=== PATIENT | male | born 1965 | race African-American/Black ===

== ENCOUNTER 2017-08-17 18:13 | Emergency (ER) | payer BC ==
[~2017-08-17] VITALS: Ht 190.5 cm; Wt 90.0 kg
[~2017-08-17 18:13] MED LIST: CYCL-36 PO; HYDR-3533 PO; NAPR-576 PO
[2017-08-17 18:15] VITALS: BP 152/70; PULSE 98; RESP 16; TEMP 98.3; O2SAT 99
--- NOTE | 2017-08-17 20:09 | PD ---
HPI Chief Complaint: Back/ Neck Pain or Injury Time Seen by Provider: 19:59 Travel History International Travel<30 days: No Contact w/Intl Traveler<30days: No Traveled to known affect area: No History of Present Illness HPI 52-year-old black male presents to emergency department by POV for evaluation of a fall with left-sided back pain. The patient states that he was attempting to break a board by jumping on it when his feet slid out from under him landing on his left lower back/flank against the edge of the pool curved. He did not strike his head. He denies syncope. No neck or upper back pain. No chest pain or shortness of breath. No nausea vomiting. No abdominal pain. No focal numbness, tingling or weakness. He does state the pain is severe. Worse with movement. No alleviating factors. He did state that he had the wind knocked out of him but he is not having difficulty breathing now. PFSH Past Medical History Medical History: Denies Significant Hx Tetanus Vaccination: < 5 Years Past Surgical History Surgical History: No Previous Surgery Social History Alcohol Use: No Tobacco Use: Yes Substance Use: No Allergies-Medications (Allergen,Severity, Reaction): Coded Allergies: No Known Allergies (Verified Adverse Reaction, Unknown, 08/17/17) Reported Meds & Prescriptions Reported Meds & Active Scripts Active Flexeril (Cyclobenzaprine HCl) 10 Mg Tab 10 Mg PO TID Diclofenac Sodium DR (Diclofenac Sodium) 75 Mg Tabdr 75 Mg PO BID Hydrocodone-Acetaminophen 5-325 mg Tab 1 Tab PO Q4H PRN Lortab 5 mg/325 mg (Hydrocodone/Acetaminophen 5 mg/325 mg) 1 Tab 1 Tab PO Q6H PRN Naproxen 500 Mg Tab 500 Mg PO Q12HR PRN Flexeril (Cyclobenzaprine HCl) 10 Mg Tab 10 Mg PO Q8HR PRN Review of Systems General / Constitutional: No: Fever Eyes: No: Visual changes HENT: No: Headaches Cardiovascular: No: Chest Pain or Discomfort Respiratory: No: Shortness of Breath Gastrointestinal: No: Abdominal Pain Genitourinary: No: Dysuria, Hematuria Musculoskeletal: Positive: Myalgias, Arthralgias, Limited ROM, Cramping, Pain Skin: No Rash Neurologic: No: Weakness Psychiatric: No: Depression Endocrine: No: Polydipsia Hematologic/Lymphatic: No: Easy Bruising Physical Exam Narrative GENERAL: Well-developed, well-nourished in mild-moderate distress secondary to pain. Nontoxic appearing. HEAD: Normocephalic, atraumatic. EYES: Pupils equal round and reactive. Extraocular motions intact. No scleral icterus. No injection or drainage. ENT: Nose clear. Throat without erythema, tonsillar hypertrophy or exudate. Uvula midline. Airway patent. NECK: Trachea midline. Supple, nontender, moves head freely. No central bony tenderness or spasm. CARDIOVASCULAR: Regular rate and rhythm without murmurs, gallops, or rubs. RESPIRATORY: Clear to auscultation. Breath sounds equal bilaterally. No wheezes , rales, or rhonchi. GASTROINTESTINAL: Abdomen soft, non-tender, nondistended. No hepato-splenomegaly , or palpable masses. No guarding. EXTREMITIES: No clubbing, cyanosis, or edema. No joint tenderness. BACK: No central bony tenderness to palpation of the dorsum and lumbar spine. Positive left lower lumbar and left flank tenderness Without deformity. Mild spasm. Significant decreased range of motion. No saddle anesthesia. NEUROLOGICAL: Awake, alert and oriented x 3 .Cranial nerves grossly intact. Motor and sensory grossly within normal limits. Normal speech. Data Data Last Documented VS Vital Signs Date Time Temp Pulse Resp B/P (MAP) Pulse Ox O2 Delivery O2 Flow Rate FiO2 08/17/17 20:31 18 08/17/17 18:15 98.3 98 152/70 (97) 99 Orders Orders Morphine Inj (Morphine Inj) (08/17/17 20:15) Ondansetron Odt (Zofran Odt) (08/17/17 20:15) Lorazepam Inj (Ativan Inj) (08/17/17 20:15) Urinalysis - C+S If Indicated (08/17/17 20:03) Spine, Lumbar - Ltd (Ap & Lat) (08/17/17 ) Labs Laboratory Tests Test 08/17/17 21:15 Urine Color YELLOW Urine Turbidity CLEAR Urine pH 5.5 Urine Specific [place] 1.014 Urine Protein NEG mg/dL Urine Glucose (UA) NEG mg/dL Urine Ketones NEG mg/dL Urine Occult Blood TRACE Urine Nitrite NEG Urine Bilirubin NEG Urine Urobilinogen LESS THAN 2.0 MG/DL Urine Leukocyte Esterase NEG Urine RBC 0-3 /hpf Urine Bacteria RARE /hpf Urine Mucus MANY /lpf Microscopic Urinalysis Comment CULT NOT INDICATED MDM Medical Decision Making Medical Screen Exam Complete: Yes Emergency Medical Condition: Yes Medical Record Reviewed: Yes Interpretation(s) Lumbar spine: Negative for acute bony injury UA: Negative Differential Diagnosis MDM: High Differential diagnoses: Fracture, sprain, strain, dislocation, contusion, neurovascular injury Narrative Course Patient is given morphine 8 mg IM, Ativan 2 mg IM, and x-ray of the lumbar spine. UA ordered. X-ray and urinary negative for acute trauma. Patient has improvement of symptoms. This is back contusion, fall Diagnosis Primary Impression: Back contusion Qualified Codes: S20.222A - Contusion of left back wall of thorax, initial encounter Additional Impression: Fall Qualified Codes: W19.XXXA - Unspecified fall, initial encounter Patient Instructions: Narcotic given in the ED, General Instructions Departure Forms: Tests/Procedures, Work Release Special Instructions: No work 2 days. Additional Instructions: Rest. Ice for the next 3 days followed by heat . Lortab, Flexeril and Voltaren. Follow-up with a primary care doctor in one week. Return to the ER for emergencies. Med/Other Pt SpecificInfo: Prescription(s) given Scripts Cyclobenzaprine (Flexeril) 10 Mg Tab 10 MG PO TID for Muscle Spasm, #30 TAB 0 Refills Prov: Alexandria Johnson DO 08/17/[address] (Diclofenac Sodium DR) 75 Mg Tabdr 75 MG PO BID, #20 TAB 0 Refills Prov: Alexandria Johnson DO 08/17/17 Hydrocodone-Acetaminophen (Hydrocodone-Acetaminophen) 5-325 mg Tab 1 TAB PO Q4H Y for PAIN, #12 TAB 0 Refills Prov: Alexandria Johnson DO 08/17/17 Disposition: 01 DISCHARGE HOME Condition: Stable Malik Maldonado Aug 17, 2017 20:09
[2017-08-17] MEDS ORDERED: MORPHINE SULFATE 8 MG/ML INJ IM ONE (20:15)
[2017-08-17] MEDS ORDERED: LORazepam 2 MG/ML VIAL IM ONE (20:15)
[2017-08-17] MEDS ORDERED: ONDANSETRON ODT 4 MG TAB PO ONE (20:15)
[2017-08-17 20:31] VITALS: RESP 18
[2017-08-17] MEDS ORDERED: DICL75TA PO (21:18)
[2017-08-17] MEDS ORDERED: HYDR-3516 PO (21:18)
[2017-08-17] MEDS ORDERED: CYCL10TA PO (21:18)
[2017-08-17 21:42] LABS: BLOOD, URINE TRACE (NEG); GLUCOSE,URINE NEG (NEG); KETONE, URINE NEG (NEG); NITRITE,URINE NEG (NEG); PH, URINE 5.5 (5.0-8.5); URINE COLOR YELLOW (YELLW/STRAW)
[2017-08-17 22:03] LABS: MUCUS URINE MANY /lpf (OCC)
--- NOTE | 2017-08-17 22:03 | RADRPT ---
EXAM DATE/TIME: 08/17/2017 20:42 [facility] COMPARISON: No previous studies available for comparison. INDICATIONS : Patient complains of lower back pain after falling near pool and hitting lower back on curb. MEDICAL HISTORY : None. SURGICAL HISTORY : None. ENCOUNTER: Initial ACUITY: 1 day PAIN SCORE: 10/10 LOCATION: L-Spine FINDINGS: Two view examination was performed. There are five non-rib bearing vertebral bodies. The vertebral bodies are in normal alignment without evidence of subluxation or scoliosis. Minimal marginal osteop hytes are seen. The disc spaces are maintained. The pedicles are intact. Bony mineralization is nor mal. No fracture is identified. CONCLUSION: No acute disease. Denys Jacobson MD on August 17, 2017 at 22:01 Board Certified Radiologist. This report was verified electronically.
[2017-08-17 22:04] LABS: BACTERIA, URINE RARE /hpf; COMMENT (UR) CULT NOT INDICATED; CULTURE IF INDICATED CULT NOT INDICATED; RBC, URINE 0-3 /hpf (0-3)
== END 2017-08-17 22:50 | disposition home or self-care (01) ==
LOC: NEPK 18:13
DX: S20.222A Contusion of left back wall of thorax, initial encounter (principal); Z72.0 Tobacco use
CPT/HCPCS: 72100; 81001; 96372; 99284; J2060; J2270